=== PATIENT | female | born 1985 | race Caucasian/White ===

== ENCOUNTER 2018-02-03 16:29 | Outpatient (REF) | payer OTHER, SELFPAY ==
--- NOTE | 2018-02-03 16:15 | PAPFT_PTH ---
PATIENT: Melissa Santana LOC: SCOUT U#:[id number] AGE/SX: 32/F ROOM: RE02/03/[address]: Harleen Azevedo : 1985 BED: DIS: 02/03/2018 SPEC #: [id number] RECD: 02/04/18 12:58 STATUS: RACHEL REQ #: [id number] WILLIAMS: 02/03/18 16:[address]: Harleen Azevedo DEPT: [facility] Cytology RECD BY: Judith Vogel Tissues: 1 - CX/ENDOCX FOR PAP SMEARS Procedures: PAP THIN PREP/[facility] Screening HPV DNA PROBE Comments: [id number]
== END 2018-02-03 16:49 ==
LOC: LBN 16:29
PROVIDERS: Visit Provider Obstetrics & Gynecology
DX: Z12.4 Encounter for screening for malignant neoplasm of cervix (principal); Z11.51 Encounter for screening for human papillomavirus (HPV)
CPT/HCPCS: 88142; 87624

== ENCOUNTER 2021-01-01 11:11 | Outpatient (REF) | payer OTHER, SELFPAY ==
--- NOTE | 2021-01-01 10:00 | PAPFT_PTH ---
PATIENT: Melissa Santana LOC: SCOUT U#:[id number] AGE/SX: 35/F ROOM: RE01/01/[address]: Alejandra Martin CNM : 1985 BED: DIS: 01/01/2021 SPEC #: [id number] RECD: 01/01/21 12:51 STATUS: RACHEL REHaleigh #: [id number] WILLIAMS: 01/01/21 10:[address]: Alejnadra Martin DEPT: [facility] Cytology RECD BY: Judith Vogel Tissues: 1 - CX/ENDOCX FOR PAP SMEARS Procedures: PAP THIN PREP/[facility] Screening HPV DNA PROBE Comments: [id number]
== END 2021-01-01 11:12 | disposition home or self-care (01) ==
LOC: LBN 11:11
PROVIDERS: Visit Provider Advanced Practice Midwife
DX: Z12.4 Encounter for screening for malignant neoplasm of cervix (principal); Z11.51 Encounter for screening for human papillomavirus (HPV)
CPT/HCPCS: 88142; 87624

== ENCOUNTER 2021-04-09 12:35 | Outpatient (REF) | payer OTHER, SELFPAY | END 2021-04-09 12:36 | disposition home or self-care (01) | LOC: LBN 12:35 | PROVIDERS: Visit Provider Nurse Practitioner Women's Health | DX: R30.0 Dysuria (principal) | CPT/HCPCS: 87086 ==

== ENCOUNTER 2021-06-12 11:14 | Outpatient (REF) | payer OTHER, SELFPAY ==
[2021-06-12 15:57] LABS: HCT 44.3 % (36.0-46.0); HGB 14.2 g/dL (11.2-15.7); MCH 29.5 pg (27.0-33.0); MCHC 32.1 % (32.0-36.0); MCV 91.9 fL (80-95); MPV 10.5 fL (8.0-11.0); Platelet Count 247 10^3/uL (130-400); RBC 4.82 10^6/uL (3.93-5.22); RDW 12.2 % (11.7-14.6); RDW-SD 41.8 fL; WBC 7.41 10^3/uL (4.4-10.8)
[2021-06-12 16:15] LABS: Anion Gap 8.3 mmol/L (3-11); BUN 14 mg/dL (7-18); CO2 26.7 mmol/L (21.0-32.0); CREATININE 0.9 mg/dL (0.55-1.02); Calcium 8.9 mg/dL (8.5-10.1); Calculated LDL 141 mg/dL (<100); Chloride 104 mmol/L (98-107); Cholesterol 235 mg/dL (<200); Glucose 77 mg/dL (74-106); HDL Cholesterol 72 mg/dL (40-60); Potassium 4.2 mmol/L (3.5-5.1); Sodium 139 mmol/L (136-145); TSH (W/Ref FT4) 1.87 uIU/mL (0.36-3.74); Triglyceride 112 mg/dL (<150)
== END 2021-06-12 11:15 | disposition home or self-care (01) ==
LOC: NCHCN 11:14
PROVIDERS: Visit Provider Nurse Practitioner Family
DX: R53.83 Other fatigue (principal); E78.79 Other disorders of bile acid and cholesterol metabolism; Z83.49 Family history of other endocrine, nutritional and metabolic diseases
CPT/HCPCS: 80048; 80061; 85027; 84443

== ENCOUNTER 2022-02-02 18:53 | Outpatient (REF) | payer OTHER, SELFPAY ==
[2022-02-04 13:26] LABS: Chlamydia Result Negative (Negative); GC Result Negative (Negative)
== END 2022-02-02 18:54 | disposition home or self-care (01) ==
LOC: LBN 18:53
PROVIDERS: Visit Provider Nurse Practitioner Women's Health
DX: Z11.3 Encounter for screening for infections with a predominantly sexual mode of transmission (principal)
CPT/HCPCS: 87491; 87591

== ENCOUNTER 2023-11-17 18:59 | Outpatient (REF) | payer OTHER, SELFPAY ==
[2023-11-17 21:17] LABS: Abs Immature Grans 0.03 10^3/uL (0.0-0.06); Absolute Basophil Count 0.08 10^3/uL (0.0-0.2); Absolute Eosinophil Count 0.28 10^3/uL (0.0-0.7); Absolute Lymphocyte Count 2.31 10^3/uL (1.2-3.4); Absolute Monocyte Count 0.69 10^3/uL (0.1-0.8); Absolute Neutrophil Count 4.81 10^3/uL (1.2-6.7); Eosinophils % 3.4 %; HCT 40.7 % (36.0-46.0); HGB 13.4 g/dL (11.2-15.7); Immature Grans % 0.4 %; Lymphocytes % 28.2 %; MCH 29.6 pg (27.0-33.0); MCHC 32.9 % (32.0-36.0); MCV 90 fL (80-95); MPV 10.3 fL (8.0-11.0); Monocytes % 8.4 %; Neutrophils % 58.6 %; Platelet Count 233 10^3/uL (130-400); RBC 4.53 10^6/uL (3.93-5.22); RDW 11.9 % (11.7-14.6); RDW-SD 38.9 fL
[2023-11-17 21:39] LABS: TSH (W/Ref FT4) 2.63 uIU/mL (0.36-3.74)
== END 2023-11-17 19:00 | disposition home or self-care (01) ==
LOC: NCHCN 18:59
PROVIDERS: Visit Provider Nurse Practitioner Family
DX: R61 Generalized hyperhidrosis (principal)
CPT/HCPCS: 84443; 85025

== ENCOUNTER 2024-10-30 13:05 | Outpatient (REF) | payer OTHER, SELFPAY ==
[2024-10-30 15:42] LABS: Anion Gap 5.7 mmol/L (3-11); BUN 10 mg/dL (7-18); CO2 30.3 mmol/L (21.0-32.0); CREATININE 0.8 mg/dL (0.55-1.02); Calcium 8.9 mg/dL (8.5-10.1); Chloride 104 mmol/L (98-107); Estimated GFR 97.26 (mL/min/1.73m2); Glucose 97 mg/dL (74-106); Potassium 4.5 mmol/L (3.5-5.1); Sodium 140 mmol/L (136-145); TSH (W/Ref FT4) 2.05 uIU/mL (0.36-3.74)
[2024-10-30 16:33] LABS: Hemoglobin A1C 5.4 % (<5.7)
== END 2024-10-30 13:06 | disposition home or self-care (01) ==
LOC: NCHCN 13:05
PROVIDERS: PCP Nurse Practitioner Family; Visit Provider Nurse Practitioner Family
DX: R53.83 Other fatigue (principal); R73.9 Hyperglycemia, unspecified
CPT/HCPCS: 80048; 83036; 84443

== ENCOUNTER 2025-04-24 12:46 | Outpatient (CLI) | payer OTHER, SELFPAY ==
--- NOTE | 2025-04-24 09:15 | DI.RAD_ITS ---
Exam(s) XR SHOULDER LT COMPLETE 2+V EXAM: XR SHOULDER LT COMPLETE 2+V CLINICAL HISTORY: LEFT SHOULDER PAIN. TECHNIQUE: 2D digital imaging was performed. COMPARISON: No exams were available for comparison FINDINGS: Two views No evidence of fracture or dislocation nor abnormal soft tissue calcifications. The subacromial space is not diminished. There are no obvious degenerative changes in the glenohumeral and AC joints. The coracoid process is intact. Bone density is normal. There are no osseous lesions. Left clavicle appears unremarkable. IMPRESSION: No significant osseous findings on these two views of the left shoulder. DATA REPOSITORY: RADIATION DOSE DELIVERED:
== END 2025-04-24 12:47 | disposition home or self-care (01) ==
LOC: DIORS 12:51
PROVIDERS: PCP Nurse Practitioner Family; Visit Provider Student in an Organized Health Care Education/Training Program
DX: M25.512 Pain in left shoulder (principal)
CPT/HCPCS: 73030